=== PATIENT | female | born 1960 | race Caucasian/White ===

== ENCOUNTER 2016-07-31 07:38 | Day surgery (SDC) | payer BC ==
--- NOTE | ~2016-07-31 | EGD ---
EGD REPORT [facility] [address] [id number] NAME: DEBBI COLÓN : 62 STATUS : REG [facility]#: [id number] AGE: 56 ADM/REG DATE : 07/31/16 MR#: [id number] REPORT SERV DATE: 07/31/16 DICTATED BY: VASQUEZ FLORES DATE: 07/31/16 REPORT STATUS : Draft [facility]: [facility] DATE: 07/31/16 Endoscopy Center Patient Name: Debbi Colón Date of : 1960 Attending MD: VASQUEZ FLORES MD Procedure Date No Time: 07/31/2016 Procedure: Upper GI endoscopy Indications: Follow-up of esophageal varices Referring MD: NEERU CHANG Medicines: Propofol per Anesthesia Complications: No immediate complications. Procedure: Pre-Anesthesia Assessment: - ASA Grade Assessment: III - A patient with severe systemic disease. After obtaining informed consent, the endoscope was passed under direct vision. Throughout the procedure, the patient's blood pressure, pulse, and oxygen saturations were monitored continuously. The GIF [id number] was introduced through the mouth, and advanced to the third part of duodenum. The upper GI endoscopy was accomplished without difficulty. The patient tolerated the procedure well. Findings: There is no endoscopic evidence of varices in the entire esophagus. Varices with status post eradication were found in the lower third of the esophagus in the lower third of the esophagus. These had no stigmata of recent bleeding. The varices had no red nataliay signs. Patchy candidiasis was found in the entire esophagus. Moderate portal hypertensive gastropathy was found in the gastric antrum. The examined duodenum was normal. Impression: - Non-bleeding esophageal varices. - Monilial esophagitis. - Portal hypertensive gastropathy. - Normal examined duodenum. Recommendation: - Discharge patient to home. - Return to previous diet today. - Continue present medications. - Diflucan (fluconazole) 100 mg PO daily for 7 weeks. - The findings and recommendations were discussed with the patient and their family. - After the procedure, if you experience any pain in abdomen or chest,shortness of breath,fever,chills,blood EGD REPORT [address] [address] NAME: DEBBI COLÓN : [birth year] STATUS : REG [facility] PAT#: [id number] AGE: 56 ADM/REG DATE : 07/31/16 MR#: [id number] REPORT SERV DATE: 07/31/16 DICTATED BY: VASQUEZ FLORES DATE: 07/31/16 REPORT STATUS : Draft TRANSCRIBED BY: [employer] DATE: 07/31/16 in stool,rectal bleeding,vomiting of any material,nausea,black stools or weakness or dizziness, GO TO THE EMERGENCY IMMEDIATELY!!!!!!!!! Procedure Code(s): --- Professional --- 12972, Esophagogastroduodenoscopy, flexible, transoral; diagnostic, including collection of specimen(s) by brushing or washing, when performed (separate procedure) Diagnosis Code(s): --- Professional --- I85.00, Esophageal varices without bleeding B37.81, Candidal esophagitis K76.6, Portal hypertension K31.89, Other diseases of stomach and duodenum CPT copyright 2013 [employer]. All rights reserved. The codes documented in this report are preliminary and upon marble and granite polisher review may be revised to meet current compliance requirements. Attending Participation: I personally performed the entire procedure. Vasquez Flores MD VASQUEZ FLORES MD 07/31/2016 9:22 AM This report has been signed electronically. Number of Addenda: 0 Note Initiated On: 07/31/2016 8:46 AM Scope Withdrawal Time 0 hours 0 minutes 0 seconds [id number] [place] [id number]
[~2016-07-31 07:38] MED LIST: AFRIN15 NAS; ARMOUR THYRO30 MG PO; ARMOUR THYROID PO; CALTRA600D PO; CEFT5 PO; CENESTIN0.9 MG OR; CYANO1000T PO; DIL4TAB PO; DSS PO; FERROCITE PO; FERROUS SULF324 MG PO; FISH OIL1200 MG PO; FORTAMET500 MG PO; GLUCOPHAGE1000 MG PO; HAIR SKIN PO; HARD NAILS PO; HEMOCYTE324 MG PO; LIOR10 PO; MAGTRATE500 MG PO; MEDROLPAK4 PO; MOBIC15 MG PO; MOMUD PO; MULTIVIT/MIN PO; NEUR100 PO; NORCO1 TA1 PO; NORCO1 TAB PO; PR25 PO; PREM625 PO; PREM9 PO; PREMARIN PO; PRILO PO; PRILOSEC OTC20 MG PO; PROTONIX PO; PROTONIX20 MG PO; SYN075 PO; SYN88 PO; SYNTHROID PO; VITAMIN D1000 UNI1 PO; ZANAFLEX 4 MG TA4 MG PO; ZYRTEC D PO; ZYRTEC-D ALG PO
== END 2016-07-31 23:59 | disposition home or self-care (01) ==
LOC: DMU 07:38
PROVIDERS: Internal Medicine Gastroenterology
PROC: 0DJ08ZZ Inspection of Upper Intestinal Tract, Via Natural or Artificial Opening Endoscopic (ICD-10-PCS; principal; 2016-07-31 09:00)
DX: I85.00 Esophageal varices without bleeding (principal); K76.6 Portal hypertension; K31.89 Other diseases of stomach and duodenum; B37.81 Candidal esophagitis; E11.9 Type 2 diabetes mellitus without complications
CPT/HCPCS: 82962; A9270-GY